=== PATIENT | female | born 1970 | race Caucasian/White ===

== ENCOUNTER 2017-11-20 14:38 | Emergency (ER) | payer OTHER ==
--- NOTE | 2017-11-20 15:24 | CR ---
INDICATION: Walking upstairs and felt a pop in the back of her knee. RIGHT KNEE: Frontal, lateral, and sunrise view were obtained of the right knee and revealed mild hypertrophic degenerative changes at the intercondylar spines and notch. Minimal hypertrophic change is noted laterally off the tibia. A fracture or dislocation was not identified. IMPRESSION: 1. No acute fracture or dislocation. 2. Mild osteoarthritis. MTDD
--- NOTE | 2017-11-20 18:07 | EDM.PDOC ---
ED HPI GENERAL MEDICAL PROBLEM - General Chief Complaint: Lower Extremity Injury/Pain Stated Complaint: RT KNEE Time Seen by Provider: 11/20/17 15:19 Source of Information: Reports: Patient, Family History Limitations: Reports: No Limitations - History of Present Illness INITIAL COMMENTS - FREE TEXT/NARRATIVE: 47 y.o.w.f acme to the ED due to pain at her R post knee. Pt had recent surgery at her left leg and is using crutches. Pt denies injuies at her right knee, but is not able to bear any weight onto her right leg. No N/V/D or any other acute medical issues. BP 135/79 pulse 76 Temp 36.8 Pulse ox 98% on RA Onset Date: 11/20/17 Onset Time: 07:00 Duration: Day(s): Location: Reports: Lower Extremity, Right Quality: Reports: Ache, Burning, Dull, Pressure, Stabbing, Throbbing Severity: Moderate Improves with: Reports: Rest Worsens with: Reports: Movement Context: Reports: Other ((?)) Associated Symptoms: Reports: No Other Symptoms Right Knee Pain Score (Numeric/FACES): 8 - Related Data Allergies Allergy/AdvReac Type Severity Reaction Status Date / Time aluminum Allergy Rash Verified 11/20/17 15:26 nickel Allergy Rash Uncoded 11/20/17 15:26 Home Meds: Home Meds FLUoxetine [PROzac] 40 mg PO DAILY 11/20/17 [History] traZODone HCl [Trazodone HCl] 50 mg PO ASDIRECTED 11/20/17 [History] Past Medical History Psychiatric History: Reports: Depression - Infectious Disease History Infectious Disease History: Reports: Chicken Pox - Past Surgical History Musculoskeletal Surgical History: Reports: Arthroscopic Knee Social & Family History - Family History Family Medical History: Noncontributory - Tobacco Use Smoking Status *Q: Never Smoker Second Hand Smoke Exposure: No - Caffeine Use Caffeine Use: Reports: Coffee - Recreational Drug Use Recreational Drug Use: No Review of Systems - Review of Systems Review Of Systems: See Below Constitutional: Reports: No Symptoms Eyes: Reports: No Symptoms Ears: Reports: No Symptoms Nose: Reports: No Symptoms Mouth/Throat: Reports: No Symptoms Respiratory: Reports: No Symptoms Cardiovascular: Reports: No Symptoms GI/Abdominal: Reports: No Symptoms Genitourinary: Reports: No Symptoms Musculoskeletal: Reports: Joint Pain (left knee) Skin: Reports: No Symptoms Neurological: Reports: No Symptoms Psychiatric: Reports: No Symptoms ED EXAM, GENERAL - Physical Exam Exam: See Below Exam Limited By: No Limitations General Appearance: Alert, WD/WN, No Apparent Distress Eye Exam: Bilateral Eye: Normal Inspection Ears: Normal External Exam Ear Exam: Bilateral Ear: Auricle Normal Nose: Normal Inspection Throat/Mouth: Normal Inspection Head: Atraumatic, Normocephalic Neck: Normal Inspection, Supple Respiratory/Chest: No Respiratory Distress, Lungs Clear, Normal Breath Sounds Cardiovascular: Normal Peripheral Pulses, Regular Rate, Rhythm, No Edema Peripheral Pulses: 1+: Brachial (L) GI/Abdominal: Normal Bowel Sounds, Soft (Female) Exam: Deferred Rectal (Female) Exam: Deferred Back Exam: Normal Inspection, Full Range of Motion Extremities: Limited Range of Motion (right knee, unable to ambulate) Neurological: Alert, Oriented, CN II-XII Intact, Normal Cognition, Abnormal Gait (unable to bear weight r leg) Psychiatric: Normal Affect, Normal Mood Skin Exam: Warm, Dry, Intact, Normal Color, No Rash Lymphatic: No Adenopathy Course - Vital Signs Text/Narrative:: 47 y.o.w.f acme to the ED due to pain at her R post knee. Pt had recent surgery at her left leg and is using crutches. Pt denies injuies at her right knee, but is not able to bear any weight onto her right leg. No N/V/D or any other acute medical issues. BP 135/79 pulse 76 Temp 36.8 Pulse ox 98% on RA PE: WNWD W F with R knee pain unable to ambulat Imaging: X Ray right knee and US Right Knee neg for a griffin's cyst Impression: R post knee pain, cause not determined 545 pm: Consultation: Dr. Allred, Hospitalist: D/C to home MRI saturday 10.30 am Tx: Pt refused Knee immobilizer Plan: Pt is scheduled for an MRI right knee to R/O Meniscus lesion D/C with instructions Last Recorded V/S: Last Vital Signs Temp 36.4 C 11/20/17 15:19 Pulse 69 11/20/17 15:19 Resp 14 11/20/17 15:19 BP 135/71 11/20/17 15:19 Pulse Ox 98 11/20/17 15:19 - Orders/Labs/Meds Orders: Active Orders 24 hr Category Date Time Status Cooling Warming Measures [RC] ASDIRECTED Care 11/20/17 14:47 Active Extremity Non Vascular Rt [US] Stat Exams 11/20/17 16:27 Taken Ice Therapy [OM.PC] Routine Oth 11/20/17 14:47 Ordered Departure - Departure Time of Disposition: 18:07 Disposition: Home, Self-Care 01 Condition: Good Clinical Impression: Knee pain, right Qualifiers: Chronicity: acute Qualified Code(s): M25.561 - Pain in right knee - Discharge Information Referrals: Drake Wilson MD [Primary Care Provider] - Forms: ED Department Discharge Additional Instructions: Rest, Ice and elevation, Motrin for pain f/u saturday right knee MRI, come back if your symptoms get worse acutely. - My Orders Last 24 Hours: My Active Orders 11/20/17 14:47 Cooling Warming Measures [RC] ASDIRECTED Ice Therapy [OM.PC] Routine 11/20/17 16:27 Extremity Non Vascular Rt [US] Stat - Assessment/Plan Last 24 Hours: My Active Orders 11/20/17 14:47 Cooling Warming Measures [RC] ASDIRECTED Ice Therapy [OM.PC] Routine 11/20/17 16:27 Extremity Non Vascular Rt [US] Stat
--- NOTE | 2017-11-22 08:57 | US ---
INDICATION: Pain behind right knee - felt a pop behind right knee, question Billingsley's cyst. EXTREMITY NON-VASCULAR RIGHT LOWER EXTREMITY: Multiple ultrasonic images were obtained in the popliteal area, failing to reveal a mass, either solid or cystic - no Billingsley's cyst is seen. Vascular flow is grossly normal. IMPRESSION: No evidence of a Billingsley's cyst. [facility]
== END 2017-11-20 18:10 | disposition home or self-care (01) ==
LOC: FB.ED 14:38
DX: M25.561 Pain in right knee (principal); Z91.048 Other nonmedicinal substance allergy status
CPT/HCPCS: 73562-RT; 76881-RT; 99284